=== PATIENT | female | born 1950 | race Caucasian/White ===

== ENCOUNTER 2017-03-08 11:52 | Emergency (ER) | payer MEDICARE ==
--- NOTE | 2017-03-08 14:25 | UC ---
Upper Extremity HPI - HPI Summary HPI Summary: Pt reports walking dog this morning and dog chased a cat and fell with right arm stretched out FOOSH - History of Current Complaint Chief Complaint: UCUpperExtremity Stated Complaint: RIGHT WRIST INJURY Time Seen by Provider: 03/08/17 13:58 Hx Obtained From: Patient ?: No Onset/Duration: Sudden Onset Severity Initially: Moderate Severity Currently: Mild Location Of Pain: Is Discrete @ - right wrist Character: Sharp - occasional shooting sharp pain, Dull, Aching Aggravating Factor(s): Movement Alleviating Factor(s): Ice, Rest Associated Signs And Symptoms: Positive: Swelling Related History: Dominant Hand Right - Risk Factors Non-Orthopedic Risk Factor: Negative Septic Arthritis Risk Factor: Negative Compartment Syndrome Risk Factors: Pain - Allergies/Home Medications Allergies/Adverse Reactions: Allergies Allergy/AdvReac Type Severity Reaction Status Date / Time No Known Allergies Allergy Verified 03/08/17 12:53 Home Medications: Home Medications Ibuprofen [Advil] 800 mg PO ONCE PRN 03/08/17 [History Confirmed 03/08/17] PMH/Surg Hx/FS Hx/Imm Hx Previously Healthy: Yes - Surgical History Surgical History: Yes Surgery Procedure, Year, and Place: Left SHOULDER SX 2009? - Family History Known Family History: Positive: Cardiac Disease - Social History Alcohol Use: Weekly Alcohol Amount: 3-5 beers weekly Substance Use Type: None Smoking Status (MU): Former Smoker Type: Cigarettes Have You Smoked in the Last Year: No When Did the Patient Quit Smoking/Using Tobacco: 2000 - Immunization History Most Recent Influenza Vaccination: remote Most Recent Tetanus Shot: current Most Recent Pneumonia Vaccination: never Review of Systems Constitutional: Negative Skin: Negative Eyes: Negative ENT: Negative Respiratory: Negative Cardiovascular: Negative Gastrointestinal: Negative Genitourinary: Negative Motor: Decreased ROM - right wrsit Neurovascular: Negative Musculoskeletal: Arthralgia, Decreased ROM - right wrist, Myalgia Neurological: Negative Psychological: Negative All Other Systems Reviewed And Are Negative: Yes Physical Exam Triage Information Reviewed: Yes Appearance: Well-Appearing Vital Signs: Initial Vital Signs Temp 98.8 F 03/08/17 12:54 Pulse 80 03/08/17 12:54 Resp 18 03/08/17 12:54 BP 153/64 03/08/17 12:54 Pulse Ox 99 03/08/17 12:54 Neck exam: Normal Respiratory Exam: Normal Musculoskeletal Exam: Other Musculoskeletal: Positive: Other: - rigth wrist, generalized tenderness Neurological Exam: Normal Psychological Exam: Normal Skin Exam: Normal Upper Extremity Course/Dx - Differential Dx/Diagnosis Differential Diagnosis/HQI/PQRI: Contusion, Fracture (Closed) Provider Diagnoses: right wrist contusion Discharge - Discharge Plan Condition: Stable Disposition: HOME Patient Education Materials: Contusion in Adults (ED), Wrist Injury (ED) Referrals: Deana Ramirez MD [Primary Care Provider] - Marc Noel MD [Medical Doctor] -
--- NOTE | 2017-03-08 14:37 | RAD ---
Indication: Right wrist injury 3 views of the wrist demonstrates no fracture. No other bone or joint abnormality is identified. IMPRESSION: NO FRACTURE OF THE WRIST IS NOTED.
[2017-03-08 14:55] VITALS: BP 151/65
== END 2017-03-08 15:08 | disposition home or self-care (01) ==
LOC: UCCORT 11:52
DX: S60.211A Contusion of right wrist, initial encounter (principal); W19.XXXA Unspecified fall, initial encounter; Y93.K1 Activity, walking an animal; Y92.9 Unspecified place or not applicable; Z87.891 Personal history of nicotine dependence
CPT/HCPCS: 99213; G0463